=== PATIENT | female | born 1965 | race Caucasian/White ===

== ENCOUNTER 2022-01-20 20:30 | Inpatient (IN) | payer OTHER ==
[~2022-01-20] VITALS: Ht 162.6 cm; Wt 62.3 kg
[~2022-01-20 20:30] MED LIST: CIPRO500 MG PO; ZOFRAN8 MG PO
[2022-01-20 23:34] LABS: BILIRUBIN NEGATIVE (NEGATIVE); BLOOD TRACE-INTACT Ery/uL (NEGATIVE); CLARITY CLEAR (CLEAR); COLOR YELLOW (YELLOW); GLUCOSE (U) NORMAL (NORMAL); LEUKOCYTES TRACE Leu/uL (NEGATIVE); NITRITE POSITIVE (NEGATIVE); PROTEIN TRACE (LOW) mg/dL (NEGATIVE)
[2022-01-20 23:38] LABS: AMPHETAMINES NEGATIVE (NEGATIVE); BARBITURATES NEGATIVE (NEGATIVE); ECSTASY (MDMA) NEGATIVE (NEGATIVE); MARIJUANA (THC) NEGATIVE (NEGATIVE); METHADONE NEGATIVE (NEGATIVE); OPIATES POSITIVE (NEGATIVE); OXYCODONE NEGATIVE (NEGATIVE)
[2022-01-20 23:46] LABS: BASOPHIL 0.3 % (0-2); EOSINOPHIL 1.2 % (0-5); HCT 39.1 % (37.0-47.0); HGB 13.6 g/dl (12.5-16.0); LYMPHOCYTE 2.2 % (15-48); MCHC 34.8 g/dL (32.0-36.0); MCV 94.9 fL (78.0-100.0); MONOCYTE 3.1 % (0-12); MPV 10.9 fL (6.0-9.5); NRBC 0; PLT 172 K/uL (150-400); RBC 4.12 M/uL (4.20-5.40); RDW 12.5 % (11.5-14.0); WBC 18.7 K/uL (4.0-10.5)
[2022-01-20 23:47] LABS: BACTERIA 1+; URINARY RBC RARE
[2022-01-20 23:48] LABS: MUCOUS TRACE
[2022-01-20 23:49] LABS: RENAL EPITHELIAL CELLS RARE; SQUAMOUS EPITHELIAL CELLS RARE
[2022-01-20 23:50] LABS: NEUTROPHIL 92.5 % (41-80)
[2022-01-21 00:07] LABS: ALBUMIN 3.5 g/dL (3.4-5.0); BILIRUBIN - TOTAL 0.6 mg/dL (0.2-1.0); BUN/CREAT RATIO (CALC) 16.2 RATIO; CREATININE 0.8 mg/dL (0.51-0.95); GLOBULIN (CALCULATION) 3.4 g/dL; POTASSIUM 3.7 mmol/L (3.5-5.1); TOTAL PROTEIN 6.9 g/dL (6.4-8.2)
[2022-01-21 00:33] LABS: CORONAVIRUS 2019 SARS-COV-2 NEGATIVE (NEGATIVE); INFLUENZA A NAA NEGATIVE (NEGATIVE)
[2022-01-21] MEDS ORDERED: NITROFURANTOIN100 M1 PO (04:32)
[2022-01-21] MEDS ORDERED: PHENAZOPYRIDIN200 MG PO (04:37)
[2022-01-21] MEDS ORDERED: PREGABALIN75 MG PO (04:38)
[2022-01-21] MEDS ORDERED: ACETAMINOPHEN-1 EAC2 PO (04:40)
[2022-01-21] MEDS ORDERED: PHENERGAN25 M1 PO (04:40)
[2022-01-21] MEDS ORDERED: SUMATRIPTAN SU100 MG PO (04:41)
[2022-01-21] MEDS ORDERED: CITALOPRAM HBR20 MG PO (04:42)
[2022-01-21 04:44] LABS: BASOPHIL 0.2 % (0-2); EOSINOPHIL 2.4 % (0-5); HCT 35.4 % (37.0-47.0); HGB 12.1 g/dl (12.5-16.0); LYMPHOCYTE 2.9 % (15-48); MCH 32.9 pg (25.0-31.0); MCHC 34.2 g/dL (32.0-36.0); MCV 96.2 fL (78.0-100.0); MONOCYTE 2.4 % (0-12); MPV 10.2 fL (6.0-9.5); NEUTROPHIL 91.6 % (41-80); NRBC 0; PLT 143 K/uL (150-400); RBC 3.68 M/uL (4.20-5.40); RDW 12.6 % (11.5-14.0); WBC 12.9 K/uL (4.0-10.5)
[2022-01-21] MEDS ORDERED: BUPROPION HCL150 M1 PO (04:44)
[2022-01-21] MEDS ORDERED: METFORMIN HCL500 M1 PO (04:44)
[2022-01-21] MEDS ORDERED: LAMOTRIGINE25 MG PO (04:45)
[2022-01-21 05:30] LABS: BUN 10 mg/dL (7-18); CHLORIDE 101 mmol/L (98-107); CO2 (BICARBONATE) 25 mmol/L (21-32); CREATININE 0.77 mg/dL (0.51-0.95); GLUCOSE 128 mg/dL (74-106); POTASSIUM 3.6 mmol/L (3.5-5.1)
[2022-01-21 05:31] LABS: C-REACTIVE PROTEIN > 18.00 mg/dL (<=0.90)
[2022-01-22 06:10] LABS: BASOPHIL 0.5 % (0-2); EOSINOPHIL 9.2 % (0-5); HGB 11.2 g/dl (12.5-16.0); LYMPHOCYTE 12.2 % (15-48); MCH 32.6 pg (25.0-31.0); MCHC 32.9 g/dL (32.0-36.0); MCV 98.8 fL (78.0-100.0); MONOCYTE 5.7 % (0-12); MPV 10.7 fL (6.0-9.5); NEUTROPHIL 71.9 % (41-80); NRBC 0; PLT 132 K/uL (150-400); RBC 3.44 M/uL (4.20-5.40); RDW 12.9 % (11.5-14.0); WBC 6.3 K/uL (4.0-10.5)
[2022-01-22] MEDS ORDERED: FLORANEX TABLE1 EACH PO (07:58)
[2022-01-22] MEDS ORDERED: BACTRIM DS TAB1 EACH PO (07:58)
[2022-01-22 08:49] LABS: IRON % SATURATION 8.6 %SAT (20-50)
[2022-01-22 09:15] LABS: ALBUMIN 2.7 g/dL (3.4-5.0); BILIRUBIN - DIRECT 0.1 mg/dL (0.00-0.20); BILIRUBIN - TOTAL 0.3 mg/dL (0.2-1.0); BUN/CREAT RATIO (CALC) 14.6 RATIO; CREATININE 0.82 mg/dL (0.51-0.95); GLOBULIN (CALCULATION) 2.9 g/dL; TOTAL PROTEIN 5.6 g/dL (6.4-8.2)
== END 2022-01-22 12:45 | disposition home or self-care (01) | DRG 871 ==
LOC: FER 20:30 → FICU 01-21 03:18 → FTCU 01-21 11:12
PROVIDERS: Family Medicine; Nurse Practitioner Acute Care; Nurse Practitioner Family; ADMIT Internal Medicine
DX: A41.9 Sepsis, unspecified organism (principal); G93.41 Metabolic encephalopathy; N30.01 Acute cystitis with hematuria; E87.1 Hypo-osmolality and hyponatremia; N17.9 Acute kidney failure, unspecified; R65.20 Severe sepsis without septic shock; Z20.822 Contact with and (suspected) exposure to COVID-19; Z28.311 Partially vaccinated for COVID-19; E11.65 Type 2 diabetes mellitus with hyperglycemia; F32.A Depression, unspecified; D64.9 Anemia, unspecified; G43.909 Migraine, unspecified, not intractable, without status migrainosus; M54.9 Dorsalgia, unspecified; G89.29 Other chronic pain; D69.6 Thrombocytopenia, unspecified; R74.01 Elevation of levels of liver transaminase levels; F17.210 Nicotine dependence, cigarettes, uncomplicated; Z90.411 Acquired partial absence of pancreas; Z88.6 Allergy status to analgesic agent; Z79.84 Long term (current) use of oral hypoglycemic drugs; Z79.899 Other long term (current) drug therapy
CPT/HCPCS: 36415; 70450; 80048; 80053; 80076; 80305; 81001; 82607; 82728; 83036; 83540; 83550; 83605; 84145; 84300; 84439; 84443; 85025; 86140; 87040; 87088; 94010; J1650; J2543; J7030; U0002